=== PATIENT | female | born 1950 | race Caucasian/White ===

== ENCOUNTER 2016-12-29 12:16 | Emergency (ER) | payer OTHER ==
[2016-12-29 12:26] VITALS: PULSE 84; TEMP 98.4
--- NOTE | 2016-12-29 14:05 | EDPHY ---
General Narrative: CHIEF COMPLAINT: chemical exposure, light headed HISTORY OF PRESENT ILLNESS: Patient reports that she was exposed to a strong odor from the copy machine at her office this afternoon. It was mild at 1st and became stronger. She feels that she became lightheaded and nauseated from it. She felt that she was going to pass out so she left the area close the door. She notified staff there. Someone else went to check it out did smell the same thing. She has not had any chest pain or vomiting. She did have some shortness of breath briefly. Minimal headache. Her symptoms began to improve as soon she left the area. At time of my examination they have improved for greater than an hour to complete resolution. She has no complaints of any kind at this time would like to go home. She feels that it was purely exposure of the fumes. No other associated complaints or modifying factors. REVIEW OF SYSTEMS: Ten systems reviewed and are negative unless otherwise noted in the HPI PCP: Prabhu physician SPECIALISTS: None PAST MEDICAL HISTORY: ADD, diabetes PAST SURGICAL HISTORY: Appendectomy, tonsillectomy, craniotomy for subdural hematoma traumatic SOCIAL HISTORY: Nonsmoker. No alcohol. No illicit substance use. Works at [employer] FAMILY HISTORY: Noncontributory EXAMINATION General Appearance: Alert, no distress Head: normocephalic, atraumatic Eyes: Pupils equal and round, no conjunctival pallor or injection ENT, Mouth: Mucous membranes moist. Airway widely patent. Uvula midline Neck: Normal inspection, supple, non-tender Respiratory: Lungs are clear to auscultation. No wheeze, rhonchi or crackles Cardiovascular: Regular rate and rhythm. No murmur Gastrointestinal: Abdomen is soft and nontender Back: non-tender, no bony abnormalities Neurological: GCS 15. A&O, nonfocal, normal gait. No pronator drift. No dysmetria. Skin: Warm and dry, no rash Extremities: Nontender, no pedal edema Psychiatric: Mood and affect normal DIFFERENTIAL DIAGNOSES: Including but not limited to chemical exposure, noxious stimuli, near-syncope, lightheadedness MDM: 2:04 p.m. Noxious stimuli from a copy machine a caused her to feel dizzy, lightheaded and short of breath. Symptoms resolved immediately after removing herself from the location of this. She is completely asymptomatic. She has been in this emergency department for 1 hour 40 minutes at this time. She has ambulated without any lightheadedness or dizziness. She has had no chest pain. Vital signs are stable. This is completely resolved and I do not feel she warrants any further workup at this time. She is comfortable this and asking to go home. She is instructed to avoid the inciting agent. She is instructed to follow up with primary care physician. I would like her to return to the emergency department immediately should she develop any dizziness, lightheadedness, chest pain or shortness of breath. She is comfortable with this plan. She is discharged home stable condition - History Smoking Status: Current some day smoker - Objective Vital Signs: Initial Vital Signs Temperature (C) 98.4 F 12/29/16 12:16 Heart Rate 84 12/29/16 12:16 Respiratory Rate 16 12/29/16 12:16 Blood Pressure 131/69 H 12/29/16 12:16 O2 Sat (%) 93 12/29/16 12:16 O2 Delivery Mode Room Air Allergies/Adverse Reactions: codeine Allergy (Verified 12/29/16 12:27) diazepam [From Valium] Allergy (Verified 03/14/13 13:51) Home Medications: Medication Instructions Recorded Prozac 03/14/13 Ritalin 03/14/13 Metformin HCl 12/29/16 Departure - Departure Disposition: Home, Routine, Self-Care Clinical Impression: Light-headed feeling Inhalation of noxious fumes Qualifiers: Encounter type: initial encounter Injury intent: accidental or unintentional Qualified Code(s): T59.91XA - Toxic effect of unspecified gases, fumes and vapors, accidental (unintentional), initial encounter Condition: Good Instructions: Lightheadedness (ED) Additional Instructions: 1. avoid inciting agent 2. Follow-up with primary care physician 3. Return to ED for any chest pain, shortness of breath, lightheadedness or dizziness Referrals: MD PRABHU [Other] - As per Instructions
[2016-12-29 14:15] VITALS: BP 121/72; RESP 20; O2SAT 92
== END 2016-12-29 14:18 | disposition home or self-care (01) ==
LOC: EDUNIT#
DX: R42 Dizziness and giddiness (principal); E11.9 Type 2 diabetes mellitus without complications; F17.200 Nicotine dependence, unspecified, uncomplicated; Z79.84 Long term (current) use of oral hypoglycemic drugs